=== PATIENT | female | born 1940 | race Caucasian/White ===

== ENCOUNTER 2020-07-23 19:45 | Emergency (ER) | payer OTHER, BC ==
[2020-07-23 19:54] VITALS: BP 157/83; PULSE 93; TEMP 98.1; BMI 27.3
== END 2020-07-23 20:58 | disposition home or self-care (01) ==
LOC: FER 19:45
DX: S00.83XA Contusion of other part of head, initial encounter (principal); S09.90XA Unspecified injury of head, initial encounter; S46.912A Strain of unspecified muscle, fascia and tendon at shoulder and upper arm level, left arm, initial encounter; S80.00XA Contusion of unspecified knee, initial encounter
CPT/HCPCS: 70450-TC; 99284-25